=== PATIENT | female | born 1985 | race Caucasian/White ===

== ENCOUNTER 2024-02-12 17:54 | Observation (INO) | payer BC, MEDICAID, SELFPAY ==
[2024-02-12] VITALS (13 sets, daily range): BP systolic 94–136; BP diastolic 49–71; PULSE 77–106; RESP 18; TEMP 36.9; BMI 35.6
--- NOTE | 2024-02-12 18:31 | XR_ITS ---
Examination: Complete OB ultrasound greater than 14 weeks Date and time of exam: February 12, 2024 1927 hrs. Indications: Vaginal bleeding beginning 2 hours ago Findings: Viable intrauterine single fetus with single amniotic sac presentation cephalic Cardiac motion 131 BPM Placenta anterior grade 2 no abruption Amniotic fluid index 8.8 cm Umbilical cord insertion seen Cervix 4.7 cm closed Ovaries obscured by bowel gas. Composite estimated gestational age based on BPD, head circumference, abdominal circumference, femur length is 31 weeks 6 days Estimated weight 1973 g. Survey of intracranial anatomy, spinal anatomy, abdominal anatomy, four-chamber heart performed with no abnormalities identified. Impression: Viable intrauterine gestation cephalic presentation Placenta anterior grade 2 no abruption.
--- NOTE | 2024-02-12 18:31 | XR_ITS ---
Examination: OB Transvaginal ultrasound of the pelvis, Limited Technique: Transvaginal sonographic images pelvis performed using navarro scale imaging Exam date and time: February 12, 2024 1955 hrs. Indications: labor with vaginal bleeding beginning 2 hours ago, unknown cervical length Findings: Cervix 3.5 cm minimal beaking 4 mm Impression: Cervix 3.5 cm.
[2024-02-12] MEDS: RINGERS LACTATED 1000 ML 1,000 ML 999 ML IV (18:47)
[2024-02-12 19:55] LABS: Collection Type, Urine Clean Catch
[2024-02-12 19:56] LABS: Basophils % (Auto) 0 % (0-2.5); Eosinophils % (Auto) 0 % (0-10); Hematocrit 28.4 % (36.0-46.0); Hemoglobin 9.9 g/dL (12.0-16.0); Immature Granulocytes % (Auto) 1 % (0-0); Immature Granulocytes Auto 0.03 Thou/mm3 (0.00-0.00); Lymphocytes # (Auto) 1.4 Thou/mm3 (1.0-4.8); Lymphocytes % (Auto) 22 % (10-50); Mean Corpuscular HGB Conc 34.9 g/dl (31.0-37.0); Mean Corpuscular Hemoglobin 30.8 pg (25.0-35.0); Mean Corpuscular Volume 89 fL (80-100); Monocytes # (Auto) 0.5 Thou/mm3 (0.0-0.8); Monocytes % (Auto) 8 % (0-12); Neutrophils # (Auto) 4.5 Thou/mm3 (1.8-7.7); Neutrophils % (Auto) 70 % (37-80); Nucleated Red Blood Cell % 0 /100 WBC (0); Platelet Count 131 Thou/mm3 (140-440); RDW Standard Deviation 41.2 fL (36.4-46.3); Red Blood Count 3.21 Miln/mm3 (4.00-5.20); White Blood Count 6.4 Thou/mm3 (3.6-11.0)
[2024-02-12 20:01] LABS: Bacteria,Urine 4+; Bilirubin,Urine Negative (Negative); Blood,Urine 3+ (Negative); Budding Yeast,Urine Present; Clarity,Urine Turbid (Clear/Hazy); Color,Urine Lt-Brown (Lt Yel-Yel); Glucose, Urine Negative (Negative); Hyaline Casts,Urine < 1 /hpf (0-1); Ketones,Urine Negative (Negative); Leukocyte Esterase,Urine Negative (Negative); Nitrite,Urine Negative (Negative); Protein,Urine 1+ (Neg - Trace); RBC,Urine 221 /hpf (0-3); Specific Gravity,Urine 1.007 (1.001-1.035); Squamous Epithelial Cell,Urine 2 /hpf (0-5); Urobilinogen,Urine Negative mg/dL (0.0-1.0); WBC,Urine 12 /hpf (0-5)
[2024-02-12 20:12] LABS: Fibrinogen 439 mg/dL (175-375); Partial Thromboplastin Time 25.1 Seconds (22.0-36.0); Prothrombin Time 10.5 Seconds (9.0-12.2)
[2024-02-12 20:15] LABS: Alanine Aminotransferase 12 U/L (10-49); Albumin, Serum 3.6 gm/dL (3.5-5.0); Albumin/Globulin Ratio 1.6 (1.2-2.2); Alkaline Phosphatase 130 U/L (46-116); Anion Gap 7 (7-16); Aspartate Amino Transferase 16 U/L (0-34); BUN/Creatinine Ratio 10 Ratio (12-20); Bilirubin,Total 0.2 mg/dL (0.3-1.2); Blood Urea Nitrogen < 5 mg/dL (9-23); Calcium 8.5 mg/dL (8.3-10.6); Calcium (Corrected) 8.8 mg/dL (8.5-10.1); Carbon Dioxide 24.1 mMol/L (20.0-31.0); Chloride 107 mMol/L (98-107); Creatinine (Component) 0.5 mg/dL (0.6-1.3); Estimated Creatinine Clearance 171.6 mL/min (>60); Globulin 2.3 gm/dL (2.3-3.5); Glucose 96 mg/dL (74-106); LDH (Lactate Dehydrogenase) 164 U/L (120-246); Osmolality,Calculated 272 (275-295); Potassium 3.7 mMol/L (3.4-5.1); Sodium 138 mMol/L (136-145); Total Protein 5.9 gm/dL (5.7-8.2); eGFR > 60 See Note
[2024-02-12] MEDS: BETAMET ACET/BETAMET NA PH (Celestone) 6 MG/ML VIAL 12 MG IM (21:25)
== END 2024-02-12 21:53 | disposition home or self-care (01) ==
PROVIDERS: Admitting Provider Student in an Organized Health Care Education/Training Program; Visit Provider Student in an Organized Health Care Education/Training Program
DX: O46.93 Antepartum hemorrhage, unspecified, third trimester (principal); Z3A.31 31 weeks gestation of pregnancy
CPT/HCPCS: 36415; 59025; 59899; 76805; 76817; 80053; 81001; 83615; 84550; 85025; 85384; 85610; 85730; 86850; 86900; 86901; 96372; J0702; J7120

== ENCOUNTER 2024-02-13 21:19 | Observation (INO) | payer BC, MEDICAID, SELFPAY ==
[2024-02-13] VITALS (21 sets, daily range): PULSE 87–107; RESP 18; TEMP 37.1; O2SAT 83–100; BMI 36.1
[2024-02-13] MEDS: BETAMET ACET/BETAMET NA PH (Celestone) 6 MG/ML VIAL 12 MG IM (22:55)
== END 2024-02-13 22:55 | disposition home or self-care (01) ==
PROVIDERS: Admitting Provider Obstetrics & Gynecology; Visit Provider Obstetrics & Gynecology
DX: Z34.83 Encounter for supervision of other normal pregnancy, third trimester (principal); Z3A.31 31 weeks gestation of pregnancy
CPT/HCPCS: 59025; 59899; 96372; G0378; J0702

== ENCOUNTER 2024-04-03 14:22 | Emergency (ER) | payer BC, MEDICAID, SELFPAY ==
[2024-04-03] VITALS (7 sets, daily range): BP systolic 107–158; BP diastolic 64–93; PULSE 58–93; RESP 15–19; TEMP 36.8–36.9; O2SAT 95–100; BMI 32.5; BMI 33.7
--- NOTE | 2024-04-03 14:26 | EKG_ITS ---
[facility] Test Date: 2024-04-03 Pat Name: SULEMAN ROWAN Department: Room: - Gender: Female Instructor Watch Assembly: : 1985 Requested By: ED Temporary Provider Order Number: [id number] Reading MD: ED Temporary Provider Measurements Intervals [place] Rate: 74 P: 44 NE: 132 QRS: 53 QRSD: 85 T: 38 QT: 360 QTc: 400 Interpretive Statements SINUS RHYTHM No previous ECG available for comparison /store/S0/[id number]/[id number].pdf
--- NOTE | 2024-04-03 15:04 | XR_ITS ---
Examination: AP chest single view TECHNIQUE: AP portable upright chest single view Exam date and time: April 03, 2024 1509 hours INDICATIONS: Onset chest pain today FINDINGS: Normal heart size. No lobar pneumonia. Mild osteopenia Suspicious for 3 mm pulmonary nodule left upper lobe IMPRESSION: Recommend AP lordotic chest follow-up to exclude 3 mm pulmonary nodule left upper lobe
--- NOTE | 2024-04-03 15:28 | XR_ITS ---
Examination: CTA chest with intravenous contrast 2-D reconstructions 3-D reconstructions, vascular Date and time of exam: April 03, 2024 at 1757 hrs. Indications: Shortness of breath chest pain onset today, 3 days CTDI: vol (mGy) 25.4 DLP: (mGycm) 373 Technique: Multiple axial sections of the thorax have been obtained. 3 mm slice thickness, from below the hemidiaphragms to above the apices of the lungs. Mediastinal and lung density settings have been obtained. 2-D sagittal and coronal reconstructions. 3-D angiographic renderings, 3-D volume renderings, 3D post processing, vascular maximum intensity projections obtained. Contrast administered is 60 cc Isovue-370 intravenous. Low dose protocols were performed. One or more of the following dose reduction techniques were used; automated exposure control, adjustment of the mA and/or KV according to patient size, use of iterative reconstruction technique. Findings: No thoracic aortic aneurysmal dilatation or dissection No pulmonary artery emboli No paratracheal tracheobronchial or bronchopulmonary adenopathy No lobar pneumonia or pulmonary edema, no pleural disease No visualized liver or splenic lesion Gallbladder partly visualized no stones noted No pancreatic mass Kidneys partially visualized no hydronephrosis Impression: Negative for pulmonary artery emboli No pneumonia, pulmonary edema, or pleural disease
[2024-04-03] MEDS: Magnesium Sulfate 2 GM Ivpb 2 GM/50 ML BAG IV (15:29)
--- NOTE | 2024-04-03 15:30 | PD.EDCHEST ---
ED Chest Pain RME/HPI General Chief Complaint: Chest Pain Stated Complaint: CXP/BUITRAGO SINCE 1400, ON 03/31/24 Time Seen by Provider: 04/03/24 15:03 Arrival date/time: 04/03/24 14:22 RME / HPI RME / HPI narrative: DR. CLAUDIO MAIN ED EVALUATION: 40 year old female with past medical history significant for recent section 03/31/2024, presents to the Emergency Department with complaint of chest pain today. Pain is described as aching and rated mild to moderate in severity. No modifying factors or radiation reported at this time. Associated symptoms include a mild headache and generalized weakness. Patient denies any tobacco, alcohol, or substance use. Related Data Home Medications ?Medication ?Instructions ?Recorded ?Confirmed bupropion HCl 100 mg tablet,12 hr 100 mg PO BID 08/05/17 02/13/24 sustained-release (Wellbutrin SR) Previous Rx's ?Medication ?Instructions ?Recorded labetalol 100 mg tablet 100 mg PO BID 28 days #56 tabs 04/03/24 Allergies Allergy/AdvReac Type Severity Reaction Status Date / Time No Known Allergies Allergy Verified 04/03/24 14:25 Review of Systems Review of Systems Systems Reviewed: All systems reviewed, normal except as documented Narrative Review of Systems: GEN: No fever, no chills, no weight loss EYES: No discharge, no visual changes, no pain HEENT: No ear pain, no congestion, no sore throat PULM: No shortness of breath, no cough, no congestion CV: + chest pain, no dyspnea on exertion, no palpitations GI: No nausea, no vomiting, no diarrhea, no pain, no constipation : No frequency, no urgency and no dysuria MUSC/SKEL: No joint pain, no back pain SKIN: No rash PSYCH: No hallucinations, no depression HEME/LYMPH: No easy bleeding or bruising tendencies NEURO: + generalized weakness, + mild headache Past Medical History Past Medical History CARDIAC: Negative Cardiac Disorders or Congestive Heart Failure RESPIRATORY: Negative Chronic Obstructive Pulmonary Disease (COPD) or Asthma GENITOURINARY: Positive Genitourinary Disorders and Kidney Stones; Negative Renal Disease ENDOCRINE: Negative Diabetes Mellitus Type 1 or Diabetes Mellitus Type 2 HEMATOLOGIC: Negative Sickle Cell Disease PSYCHO/SOCIAL: Positive Depression Surgical History SURGICAL: Positive Section (x 3) Social History SMOKING STATUS: Never smoker ED Exam Narrative Physical exam: GENERAL APPEARANCE: alert and oriented x 4, well-developed, well-nourished, no acute distress VITALS: All vitals were reviewed and the pulse ox is 99% on room air, which is normal according to my interpretation. HEENT: Normocephalic, atraumatic; pupils equal, round, reactive to light; EOMI; mucous membranes pink, moist; oropharynx clear NECK: Supple LUNGS: CTABL; no wheezes, no rales, no rhonchi HEART: Regular rate, regular rhythm; normal S1, S2; no murmurs ABDOMEN: non distended; normal BS; soft, no tenderness, no guarding, no rebound; no masses, no organomegaly, no hernia BACK: no CVA tenderness EXTREMITIES: atraumatic; no edema NEUROLOGIC: awake; alert and oriented x4; cranial nerves II-XII grossly intact; no focal sensory or motor deficits PSYCHIATRIC: appropriate mood and affect SKIN: warm, dry, normal color; no rashes Course Course Course Narrative: 1800: Patient was signed out to Dr. Wheeler. Past medical, surgical, social and family history reviewed. Vitals and home medications reviewed. Results and treatment plan discussed. They will assume the care of the patient at this time and will follow the patient, pending chest CTA and final disposition. Quality Measures none Orders Category Date Time Status CT Screening NOW Care 04/03/24 15:28 Completed Prepared Foods Team Leader NOW Care 04/03/24 15:04 Completed EKG (ED ONLY) *Do not use* NOW Care 04/03/24 14:[address] angio chest Stat Exams 04/03/24 15:28 Completed EKG (ED Only) Stat Exams 04/03/24 14:26 Draft XR chest 1V portable Stat Exams 04/03/24 15:04 Completed B-Type Natriuretic Peptide Stat Lab 04/03/24 15:27 Completed CBC Stat Lab 04/03/24 15:27 Completed Comprehensive Metabolic Panel Stat Lab 04/03/24 15:27 Completed Lipase Stat Lab 04/03/24 15:27 Completed Magnesium Stat Lab 04/03/24 15:27 Completed Partial Thromboplastin Time Stat Lab 04/03/24 15:27 Completed Prothrombin Time with INR Stat Lab 04/03/24 15:27 Completed Troponin I Stat Lab 04/03/24 15:27 Completed UA [Urinalysis] Stat Lab 04/03/24 16:01 Completed HYDROcodone*/APAP 5/325 [[place] 5/325] Med 04/03/24 19:37 Discontinued 1 tab PO X1 ONE Labetalol IV [Trandate IV] Med 04/03/24 16:27 Discontinued 10 mg IVP X1 ONE Magnesium Sulfate 2 GM Ivpb [Magnesium Sulfate Ivpb] Med 04/03/24 15:05 Discontinued 2 gm in 50 ml IV X1 Vital Signs Vital signs: Vital Signs Temperature 98.5 F 04/03/24 14:41 Pulse Rate 93 04/03/24 14:41 Respiratory Rate 19 04/03/24 14:41 Blood Pressure 158/93 H 04/03/24 14:41 Pulse Oximetry (%) 100 04/03/24 14:41 Oxygen Delivery Method Room Air 04/03/24 14:41 Chest Pain MDM Narrative MDM Narrative:: Acacia Ramos am scribing for and in the presence of Dr. Claudio. Patient data External records reviewed:: [facility] previous records (Reviewed last ED visit dated 06/16/23, discharged with the following: Acute dehydration.) Clinical information provided by:: patient Social determinants that could affect healthcare access:: none Patient has the following chronic illnesses:: Recent section 03/31/2024 How is presenting disease/condition affected by chronic disease/condition?: exacerbated by Evaluation data The following diagnostics were reviewed and interpreted by me:: lab results, radiology exam(s) and EKG tracing(s) (sinus rhythm, rate 74, no STEMI) Lab and/or radiology exams considered but not ordered:: none Interpretation Summary: Procedure(s): XR chest 1V portable Accession Number(s): [id number] cc: Asher Guerrero MD; Marcia Claudio MD~ Examination: AP chest single view TECHNIQUE: AP portable upright chest single view Exam date and time: April 03, 2024 1509 hours INDICATIONS: Onset chest pain today FINDINGS: Normal heart size. No lobar pneumonia. Mild osteopenia Suspicious for 3 mm pulmonary nodule left upper lobe IMPRESSION: Recommend AP lordotic chest follow-up to exclude 3 mm pulmonary nodule left upper lobe Dictated By: Asher Guerrero MD Medications / Prescriptions Medications or Prescriptions considered but not ordered:: none Medication administrations:: Medication Administration History Discontinued Medications Hydrocodone Bitart/Acetaminophen (Hydrocodone/Apap 5/325 Tablet) 1 tab PO X1 ONE Stop: 04/03/24 19:38 Last Admin: 04/03/24 19:44 Dose: 1 tab Documented By: JUAN PABLO Magnesium Sulfate (Magnesium Sulfate Ivpb) 2 gm in 50 mls @ 25 mls/hr IV X1 ONE Stop: 04/03/24 17:04 Last Infusion: 04/03/24 18:00 Dose: Infused Documented By: Admin: 04/03/24 15:29 Dose: 25 mls/hr Documented By: NANO Labetalol HCl (Labetalol Inj 5 Mg/Ml Vial 20 Ml) 10 mg IVP X1 ONE Stop: 04/03/24 16:28 Last Admin: 04/03/24 17:07 Dose: 10 mg Documented By: IAN see above Consultations Consultation(s) initiated? (list below): No Diagnosis Chest Pain Differential Diagnosis: atypical chest pain, costochondritis, chest pain and other (dehydration) Most likely diagnosis given after review of the tests above:: No official diagnoses at this time, still pending diagnostic tests. Patient signout to the baggage agent supervisor provider. Admission Indicated Admission indicated?: not indicated Explain why admission is indicated or not indicated:: No final disposition plan at this time, still pending diagnostic tests. Patient signout to the baggage agent supervisor provider. Admission Request Was there a request for admission?: No Disposition Plan Disposition Plan: other (specify) (Patient signout to the baggage agent supervisor provider. ) Discharge Plan Plan Patient Disposition: HOME (Self Care) Patient condition on transfer: Stable Prescriptions/Referrals Prescriptions/Med Rec: New labetalol 100 mg tablet 100 mg PO BID 28 Days Qty: 56 0RF No Action bupropion HCl [Wellbutrin SR] 100 mg Tablet Extended Release 12 Hr 100 mg PO BID Referrals: Otis Wolfe PA-C [Primary Care Provider] - In 1 week Problem List Clinical Impression: Hypertension affecting Patient/Caregiver Discharge Instructions Education Materials: ED Hypertension, To Be Confirmed Additional Instructions: 1-I just talked with Dr Osuna, or [facility] on-call and he feels you are safe for discharge. He would like you to start blood pressure medication for the next 14 days. 2-take Labetalol 100 mg twice a day for the next 14 days. 3-Call tomorrow your [facility] so that you can get an appointment in the next 72 hours. You can take your blood pressure every day at the same time using the same cuff they have available. Return to the emergency department before your appointment with your [facility] if you have recurrence of headache, chest pain, blurry vision, or any other concerns. Print Language: [place] Stand Alone Forms: Angela Award Info., Patient Portal Info Letter
--- NOTE | 2024-04-03 15:53 | PC.NURSE ---
Patient to er from [facility] and taken to rm 1 patient s/p on 03/31/25 c/o upper mid chest pain, weakness and slight sob in addition to left zoroastrian and rates both at 5/10, pale, warm and dry. new orders received by Dr. Claudio.
[2024-04-03 16:12] LABS: Collection Type, Urine Clean Catch
[2024-04-03 16:15] LABS: Basophils % (Auto) 0 % (0-2.5); Eosinophils % (Auto) 0 % (0-10); Hematocrit 27.6 % (36.0-46.0); Hemoglobin 9.6 g/dL (12.0-16.0); Immature Granulocytes % (Auto) 1 % (0-0); Immature Granulocytes Auto 0.03 Thou/mm3 (0.00-0.00); Lymphocytes # (Auto) 1.2 Thou/mm3 (1.0-4.8); Lymphocytes % (Auto) 19 % (10-50); Mean Corpuscular HGB Conc 34.8 g/dl (31.0-37.0); Mean Corpuscular Hemoglobin 30.7 pg (25.0-35.0); Mean Corpuscular Volume 88 fL (80-100); Monocytes # (Auto) 0.4 Thou/mm3 (0.0-0.8); Monocytes % (Auto) 6 % (0-12); Neutrophils # (Auto) 4.7 Thou/mm3 (1.8-7.7); Neutrophils % (Auto) 74 % (37-80); Nucleated Red Blood Cell % 0 /100 WBC (0); Platelet Count 184 Thou/mm3 (140-440); RDW Standard Deviation 41.6 fL (36.4-46.3); Red Blood Count 3.13 Miln/mm3 (4.00-5.20); White Blood Count 6.4 Thou/mm3 (3.6-11.0)
[2024-04-03 16:35] LABS: INR 0.9 (0.9-1.3); Partial Thromboplastin Time 26.2 Seconds (22.0-36.0); Prothrombin Time 10.3 Seconds (9.0-12.2)
[2024-04-03 16:46] LABS: B-Type Natriuretic Peptide 73 pg/mL (0-100)
[2024-04-03 16:59] LABS: Alanine Aminotransferase 14 U/L (10-49); Albumin, Serum 3.8 gm/dL (3.5-5.0); Albumin/Globulin Ratio 1.7 (1.2-2.2); Alkaline Phosphatase 219 U/L (46-116); Anion Gap 10 (7-16); Aspartate Amino Transferase 15 U/L (0-34); BUN/Creatinine Ratio 17 Ratio (12-20); Bilirubin,Total 0.3 mg/dL (0.3-1.2); Blood Urea Nitrogen 10 mg/dL (9-23); Calcium 8.5 mg/dL (8.3-10.6); Calcium (Corrected) 8.7 mg/dL (8.5-10.1); Carbon Dioxide 24.6 mMol/L (20.0-31.0); Chloride 105 mMol/L (98-107); Creatinine (Component) 0.6 mg/dL (0.6-1.3); Estimated Creatinine Clearance 137.6 mL/min (>60); Globulin 2.3 gm/dL (2.3-3.5); Glucose 83 mg/dL (74-106); Lipase 24 U/L (12-53); Magnesium 1.6 mg/dL (1.6-2.6); Osmolality,Calculated 277 (275-295); Potassium 3.7 mMol/L (3.4-5.1); Sodium 140 mMol/L (136-145); Total Protein 6.1 gm/dL (5.7-8.2); Troponin I < 0.020 ng/mL (0.0-0.045); eGFR > 60 See Note
[2024-04-03] MEDS: LABETALOL INJ 5 MG/ML VIAL 20 ML 10 MG IVP (17:07)
[2024-04-03 17:19] LABS: Bilirubin,Urine Negative (Negative); Blood,Urine 3+ (Negative); Clarity,Urine Clear (Clear/Hazy); Color,Urine Colorless (Lt Yel-Yel); Glucose, Urine Negative (Negative); Ketones,Urine Negative (Negative); Leukocyte Esterase,Urine Negative (Negative); Nitrite,Urine Negative (Negative); Protein,Urine Negative (Neg - Trace); RBC,Urine 21 /hpf (0-3); Specific Gravity,Urine 1.008 (1.001-1.035); Squamous Epithelial Cell,Urine 2 /hpf (0-5); Urobilinogen,Urine Negative mg/dL (0.0-1.0); WBC,Urine 4 /hpf (0-5)
[2024-04-03] MEDS: HYDROcodone/APAP 5/325 TABLET 1 TAB PO (19:44)
--- NOTE | 2024-04-03 19:49 | PD.EDADDENDU ---
Emergency Room Addendum Addendum Narrative: Signed out pending CTA. Seen by .
--- NOTE | 2024-04-03 21:04 | PD.EDADDENDU ---
Emergency Room Addendum Addendum Narrative: 1800: Care assumed from Dr. Claudio, the previous shift emergency physician. Past medical, surgical, social and family history reviewed. Vitals and home medications reviewed. I will assume the care of the patient at this time, pending chest CTA and final disposition. Please refer to the emergency department record for history and examination from initial visit.? Physical exam by me shows patient under no acute distress at this time. 2049: Discussed test HPI, PMHx, lab, radiology results and/or management with Dr. Osuna, requests to start short-term a course of Labetolol. Can follow as an outpatient. 2054: Patient remains clinically stable throughout the emergency department visit. Re-assessment at the time of disposition demonstrates that the patient is in no acute distress. We reviewed all the results, analysis, and treatment plans. Patient is amenable to discharge. Strict return precautions were outlined. Patient was discharged in stable condition. Diagnosis: Hypertension affecting RADIOLOGY Procedure(s): CT angio chest Accession Number(s): [id number] cc: Otis Wolfe PA-C; Asher Guerrero MD; Marcia Claudio MD~ Examination: CTA chest with intravenous contrast 2-D reconstructions 3-D reconstructions, vascular Date and time of exam: April 03, 2024 at 1757 hrs. Indications: Shortness of breath chest pain onset today, 3 days CTDI: vol (mGy) 25.4 DLP: (mGycm) 373 Technique: Multiple axial sections of the thorax have been obtained. 3 mm slice thickness, from below the hemidiaphragms to above the apices of the lungs. Mediastinal and lung density settings have been obtained. 2-D sagittal and coronal reconstructions. 3-D angiographic renderings, 3-D volume renderings, 3D post processing, vascular maximum intensity projections obtained. Contrast administered is 60 cc Isovue-370 intravenous. Low dose protocols were performed. One or more of the following dose reduction techniques were used; automated exposure control, adjustment of the mA and/or KV according to patient size, use of iterative reconstruction technique. Findings: No thoracic aortic aneurysmal dilatation or dissection No pulmonary artery emboli No paratracheal tracheobronchial or bronchopulmonary adenopathy No lobar pneumonia or pulmonary edema, no pleural disease No visualized liver or splenic lesion Gallbladder partly visualized no stones noted No pancreatic mass Kidneys partially visualized no hydronephrosis Impression: Negative for pulmonary artery emboli No pneumonia, pulmonary edema, or pleural disease Dictated By: Asher Guerrero MD
== END 2024-04-03 21:07 | disposition home or self-care (01) ==
PROVIDERS: Emergency Medicine; Emergency Provider Emergency Medicine; PCP Physician Assistant
DX: O16.5 Unspecified maternal hypertension, complicating the puerperium (principal); O90.89 Other complications of the puerperium, not elsewhere classified; R06.02 Shortness of breath; R07.9 Chest pain, unspecified
CPT/HCPCS: 36415; 71045; 71275; 80053; 81001; 83690; 83735; 83880; 84484; 85025; 85610; 85730; 93005; 96365; 96366; 96375; 99285; A4649; J3475; J3490; Q9967; A9270; J1920

== ENCOUNTER 2025-02-16 17:23 | Emergency (ER) | payer BC, MEDICAID, SELFPAY ==
[2025-02-16 17:24] VITALS: BMI 28.8
--- NOTE | 2025-02-16 17:36 | XR_ITS ---
Examination: CT abdomen and pelvis without contrast. Coronal 3-D reconstructions. Sagittal 2-D reconstructions. Date and time of exam: February 16, 2025, 1907 hours, comparison June 16, 2023 INDICATIONS: Left sided abdominal pain radiating to the flank today with nausea CTDI: vol (mGy): 7.97 DLP: (mGycm): 433 Technique: Axial images of the abdomen have been obtained, 3 mm slice thickness Intravenous contrast material has not been administered. Low dose protocols were performed. One or more of the following dose reduction techniques were used; automated exposure control, adjustment of the mA and/or KV according to patient size, use of iterative reconstruction technique. Findings: No visualized liver or splenic lesion No gallstones No renal or ureteral calculi Contracted gallbladder No pancreatic mass Aorta normal size No pericecal inflammatory change No bowel obstruction or diverticulitis No pericecal inflammatory change Retroverted uterus Urinary bladder wall thickening, mild 8 mm left paracentral L5-S1 disc bulge displacing the left S1 nerve root IMPRESSION: No renal or ureteral calculi, no hydronephrosis No CT findings of appendicitis bowel obstruction or diverticulitis Cystitis pattern L5-S1 8 mm left paracentral disc bulge displacing the left S1 nerve root
[2025-02-16 17:37] VITALS: BP 118/64; PULSE 85; RESP 20; TEMP 36.8; O2SAT 96
--- NOTE | 2025-02-16 17:38 | PD.EDRME ---
Rapid Medical Screening Exam RME Arrival date/time: 02/16/25 17:23 This is a case of 39-year-old female with history of kidney stone came into the emergency room due to left-sided abdominal pain radiating to the left flank with nausea vomiting today Chief Complaint: Abdominal Pain Time Seen by Provider: 02/16/25 17:33 Vital signs: Vital Signs Temperature 98.2 F 02/16/25 17:37 Pulse Rate 85 02/16/25 17:37 Respiratory Rate 20 02/16/25 17:37 Blood Pressure 118/64 02/16/25 17:37 Pulse Oximetry (%) 96 02/16/25 17:37 Oxygen Delivery Method Room Air 02/16/25 17:37 Exam: Moderate tenderness in the left upper and left lower quadrant and left flank no guarding no rebound no rigidity Clinical Impression: Abdominal pain
[2025-02-16 18:06] LABS: Collection Type, Urine Clean Catch
[2025-02-16 18:12] LABS: Basophils # (Auto) 0.0 Thou/mm3 (0.0-0.2); Basophils % (Auto) 0 % (0-2.5); Eosinophils # (Auto) 0.0 Thou/mm3 (0.0-0.5); Eosinophils % (Auto) 1 % (0-10); Hematocrit 32.7 % (36.0-46.0); Hemoglobin 11.3 g/dL (12.0-16.0); Immature Granulocytes Auto 0.01 Thou/mm3 (0.00-0.00); Lymphocytes # (Auto) 1.8 Thou/mm3 (1.0-4.8); Lymphocytes % (Auto) 37 % (10-50); Mean Corpuscular HGB Conc 34.6 g/dl (31.0-37.0); Mean Corpuscular Hemoglobin 31.3 pg (25.0-35.0); Mean Corpuscular Volume 91 fL (80-100); Monocytes # (Auto) 0.4 Thou/mm3 (0.0-0.8); Monocytes % (Auto) 8 % (0-12); Neutrophils # (Auto) 2.6 Thou/mm3 (1.8-7.7); Neutrophils % (Auto) 54 % (37-80); Nucleated Red Blood Cell # 0.00 Thou/mm3 (0.00-0.00); Nucleated Red Blood Cell % 0 /100 WBC (0); Platelet Count 175 Thou/mm3 (140-440); RDW Standard Deviation 41.0 fL (36.4-46.3); Red Blood Count 3.61 Miln/mm3 (4.00-5.20); White Blood Count 4.9 Thou/mm3 (3.6-11.0)
[2025-02-16 18:13] LABS: Bilirubin,Urine Negative (Negative); Blood,Urine Negative (Negative); Clarity,Urine Clear (Clear/Hazy); Color,Urine Colorless (Lt Yel-Yel); Glucose, Urine Negative (Negative); Ketones,Urine Negative (Negative); Leukocyte Esterase,Urine Negative (Negative); Nitrite,Urine Negative (Negative); PH,Urine 7.0 (5.0-7.0); Protein,Urine Negative (Neg - Trace); RBC,Urine 1 /hpf (0-3); Specific Gravity,Urine 1.010 (1.001-1.035); Squamous Epithelial Cell,Urine 4 /hpf (0-5); Urobilinogen,Urine Negative mg/dL (0.0-1.0); WBC,Urine < 1 /hpf (0-5)
[2025-02-16 18:27] LABS: Alanine Aminotransferase 8 U/L (10-49); Albumin, Serum 4.5 gm/dL (3.5-5.0); Albumin/Globulin Ratio 2.4 (1.2-2.2); Alkaline Phosphatase 48 U/L (46-116); Anion Gap 9 (7-16); Aspartate Amino Transferase 15 U/L (0-34); BUN/Creatinine Ratio 9 Ratio (12-20); Bilirubin,Total 0.2 mg/dL (0.3-1.2); Blood Urea Nitrogen 6 mg/dL (9-23); Calcium 9.1 mg/dL (8.3-10.6); Calcium (Corrected) 9.1 mg/dL (8.5-10.1); Carbon Dioxide 27.0 mMol/L (20.0-31.0); Chloride 106 mMol/L (98-107); Creatinine (Component) 0.7 mg/dL (0.6-1.3); Estimated Creatinine Clearance 108.9 mL/min (>60); Globulin 1.9 gm/dL (2.3-3.5); Glucose 77 mg/dL (74-106); Lipase 39 U/L (12-53); Osmolality,Calculated 279 (275-295); Potassium 4.0 mMol/L (3.4-5.1); Sodium 142 mMol/L (136-145); Total Protein 6.4 gm/dL (5.7-8.2); eGFR > 60 See Note
[2025-02-16 18:28] LABS: HCG Qualitative,Urine Negative
[2025-02-16 20:38] VITALS: BP 123/67; PULSE 74; RESP 19; TEMP 36.7; O2SAT 99
--- NOTE | 2025-02-16 21:00 | PD.EDADULT ---
ED General RME/HPI General Chief complaint: Abdominal Pain Stated complaint: LEFT FLANK PAIN WITH CHILLS Time Seen by Provider: 02/16/25 17:33 Arrival date/time: 02/16/25 17:23 CC: Left flank pain with radiation to the abdomen, onset approximately 1 week ago waxes and wanes minimal relief with with intermittent NSAIDs. Patient is concerned that she may have UTI, although the patient does not have any of the other symptoms including burning or painful urination fever rigors. Patient denies any right sided pain, chest pain shortness of breath difficulty breathing painful urination or bloody urination. RME / HPI RME / HPI narrative: 02/16/25 17:23 This is a case of 39-year-old female with history of kidney stone came into the emergency room due to left-sided abdominal pain radiating to the left flank with nausea vomiting today Exam: Moderate tenderness in the left upper and left lower quadrant and left flank no guarding no rebound no rigidity Impression: Abdominal pain Related Data Home Medications ?Medication ?Instructions ?Recorded ?Confirmed bupropion HCl 100 mg tablet,12 hr 100 mg PO BID 08/05/17 02/13/24 sustained-release (Wellbutrin SR) Previous Rx's ?Medication ?Instructions ?Recorded meloxicam 7.5 mg tablet 7.5 mg PO QDAY #10 tabs 02/16/25 Allergies Allergy/AdvReac Type Severity Reaction Status Date / Time No Known Allergies Allergy Verified 02/16/25 17:26 Review of Systems Review of Systems Narrative Review of Systems: GEN: No fever, no chills, no weight loss EYES: No discharge, no visual changes, no pain HEENT: No ear pain, no congestion, no sore throat PULM: No shortness of breath, no cough, no congestion CV: No chest pain, no dyspnea on exertion, no palpitations GI: No nausea, no vomiting, no diarrhea, no pain, no constipation : No frequency, no urgency, no dysuria MUSC/SKEL: No joint pain, + back pain SKIN: No rash PSYCH: No hallucinations, no depression HEME/LYMPH: No easy bleeding or bruising tendencies NEURO: No weakness, no headache Past Medical History Past Medical History CARDIAC: Negative Cardiac Disorders or Congestive Heart Failure RESPIRATORY: Negative Chronic Obstructive Pulmonary Disease (COPD) or Asthma GENITOURINARY: Positive Genitourinary Disorders and Kidney Stones; Negative Renal Disease ENDOCRINE: Negative Diabetes Mellitus Type 1 or Diabetes Mellitus Type 2 HEMATOLOGIC: Negative Sickle Cell Disease PSYCHO/SOCIAL: Positive Depression Surgical History SURGICAL: Positive Section (x 3) Social History SMOKING STATUS: Never smoker ED Exam Narrative Physical exam: [General: Not in any acute distress Head normocephalic HEENT: Within acceptable limits Neck is supple nontender Chest equal chest rise nontender to palpation Respiratory: Clear to auscultation no wheezes crackles or rubs CV: Rate rhythm is regular no murmurs rubs or clicks Abdomen is soft nontender no masses positive bowel sounds all 4 quadrants Back: Left lower thoracic upper lumbar tenderness with palpation no CVA tenderness, no spinous process tenderness in this area and no right sided tenderness. Pain is reproducible with light palpation. Skin: No rash to the back or left lateral chest wall or upper abdomen. Skin is intact no petechiae rash induration ulceration or crepitus Extremities: Moving all extremity against resistance cap refill less than 2 seconds neurosensory intact Neuro: Awake alert oriented x3 Glascow coma 15 no focal deficits] Course Course Course Narrative: While completing the interview was determined that the patient carries her [id number] child on the left side, while using her right hand for daily tasks. Given that the patient's pain is easily reproduced with palpation I am suspicious the patient has pulled the muscles and has some mild hyperesthesias to the left back secondary to muscle strain. Will discharge the patient home on meloxicam she is to follow-up with her primary care doctor. Quality Measures none Orders Category Date Time Status CT abdomen pelvis wo con Stat Exams 02/16/25 17:36 Completed CBC Stat Lab 02/16/25 17:54 Completed Comprehensive Metabolic Panel Stat Lab 02/16/25 17:54 Completed HCG Qualitative,Urine Stat Lab 02/16/25 17:50 Completed Lipase Stat Lab 02/16/25 17:54 Completed Urinalysis Stat Lab 02/16/25 17:50 Completed Vital Signs Vital signs: Vital Signs Temperature 98.2 F 02/16/25 17:37 Pulse Rate 85 02/16/25 17:37 Respiratory Rate 20 02/16/25 17:37 Blood Pressure 118/64 02/16/25 17:37 Pulse Oximetry (%) 96 02/16/25 17:37 Oxygen Delivery Method Room Air 02/16/25 17:37 Discharge Plan Plan Patient Disposition: HOME (Self Care) Patient condition on transfer: Stable Prescriptions/Referrals Prescriptions/Med Rec: New meloxicam 7.5 mg tablet 7.5 mg PO QDAY Qty: 10 0RF No Action bupropion HCl [Wellbutrin SR] 100 mg Tablet Extended Release 12 Hr 100 mg PO BID Referrals: Swapnil Day MD [Physician, Family Practice] - In 1 week No Primary/Family,Physician [Primary Care Provider] - In 1 week Problem List Clinical Impression: Strain of mid-back, Paresthesias Patient/Caregiver Discharge Instructions Education Materials: ED Air Bag Contact Injury, ED Paraesthesias Additional Instructions: Avoid lifting your child with your left arm is much as possible take the medications for temporary pain relief, ice or heating pad to additional temporary pain relief if there is worsening of symptoms follow-up with your primary care doctor return the emergency room if necessary. Print Language: Nicaraguan Stand Alone Forms: Angela Award Info., Patient Portal Info Letter, Work/School Release PA/RETAIL MANAGEMENT KEYHOLDER Supervising Physician PA/RETAIL MANAGEMENT KEYHOLDER Supervising Physician: Donis Mendoza ENP [facility] Clinical Information Provided by: patient Medical Records reviewed [facility] Meds/Rx considered, not ordered None Labs/Rad/Tests considered, not ordered None Chronic Illness/Social Conditions which may negatively complicate care or outcome(s)-explain: None or not applicable EKG EKG not done Labs Labs: interpreted by [facility] Lab(s) Interpretation(s): CBC shows no acute leukocytosis the patient has anemia with a hemoglobin of 11.3 Guy crit of 32.7 no thrombocytopenia CMP shows no significant electrolyte imbalances renal impairment transaminitis or T. bili elevation Lipase is 39 Urine is negative for urinary tract infection Imaging Imaging interpretation: interpreted by [facility] Imaging Interpretation(s): CT of the abdomen pelvis is negative for any acute finding requires emergent or main intervention.
== END 2025-02-16 21:35 | disposition home or self-care (01) ==
PROVIDERS: Nurse Practitioner Family; Emergency Provider Emergency Medicine
DX: S29.012A Strain of muscle and tendon of back wall of thorax, initial encounter (principal); X58.XXXA Exposure to other specified factors, initial encounter
CPT/HCPCS: 36415; 74176; 80053; 81001; 81025; 83690; 85025; 99283